=== PATIENT | female | born 1950 | race Two or more races ===

== ENCOUNTER 2017-09-24 12:33 | Inpatient (IN) | payer MEDICARE, OTHER ==
[~2017-09-24] VITALS: Ht 157.5 cm; Wt 70.2 kg
[~2017-09-24 12:33] MED LIST: AML5T PO; ATEN-60 PO; HYDR25TA4 PO; LEVO137T3 PO; POTA20TA53 PO; SIMV-8 PO
[2017-09-24] MEDS ORDERED: PROMETHAZINE HCL 25 MG/ML 1ML ONE (13:12)
[2017-09-24 13:39] LABS: Basophils # (auto) 0.1 uL; Basophils % (auto) 0.8 % (0.0-2.0); Eosinophils # (auto) 0.1 uL; Eosinophils % (auto) 1.6 % (0.0-7.0); Hemoglobin 12.5 g/dL (12.2-16.2); Lymphocytes # (auto) 1.6 uL; Lymphocytes % (auto) 24.4 % (10.0-50.0); Mean Corpuscular Hemoglobin 30.1 pg (28.0-32.0); Mean Corpuscular Hgb Conc. 33.8 g/dL (32.0-36.0); Mean Platelet Volume 8.7 fL (6.9-10.8); Monocytes # (auto) 0.4 uL; Monocytes % (auto) 5.5 % (0.0-12.0); Neutrophils # (auto) 4.6 uL; Neutrophils % (auto) 67.7 % (37.0-80.0); Nucleated Red Blood Cells % 0.1 %; Platelet Count (auto) 194 10^3/uL (140-450); Red Cell Distribution Width 14.2 % (11.8-14.3); White Blood Cell 6.7 10^3/uL (4.4-10.8)
[2017-09-24] MEDS ORDERED: PROMETHAZINE HCL 25 MG/ML 1ML IV ONE (13:45)
[2017-09-24 14:05] LABS: Albumin 3.2 g/dL (3.4-5.0); Anion Gap 4 (5-15); Aspartate Aminotransferase 20 U/L (15-37); BUN/Creatinine Ratio 20.7; Blood Urea Nitrogen 18 mg/dL (7-18); Calcium 8.4 mg/dL (8.5-10.1); Carbon Dioxide 29 mmol/L (21-32); Chloride 107 mmol/L (98-107); GFR African American 84 mL/min; GFR Non-African American 69 mL/min; Glucose 114 mg/dL (74-106); Sodium 140 mmol/L (136-145)
[2017-09-24 14:12] LABS: Alkaline Phosphatase 93 U/L (45-117); Bilirubin, Total 0.3 mg/dL (0.2-1.0); Total Protein 7.7 g/dL (6.4-8.2)
[2017-09-24 15:54] LABS: Urine RBC None Seen /hpf (0 - 4)
[2017-09-24] MEDS ORDERED: SODIUM CHLORIDE 0.9% 1,000 ML IVB ONE (16:10)
[2017-09-24 16:12] LABS: Urine Bilirubin Negative (Negative); Urine Blood Negative /uL (Negative); Urine Color Yellow (Yellow); Urine Glucose Normal (Normal); Urine Hyaline Cast FEW /lpf (0 - 2); Urine Ketone Negative (Negative); Urine Nitrite Negative (Negative); Urine Urobilinogen Normal (Negative)
[2017-09-24 16:54] LABS: INR 0.98 (0.9-1.15); Prothrombin Time 10.7 sec (9.37-12.3)
[2017-09-24] MEDS ORDERED: POTASSIUM CHL 20 Meq TABLET PO ONE (19:00)
[2017-09-24 22:26] VITALS: BP 142/76
[2017-09-24] MEDS ORDERED: LEVO112T4 PO (22:38)
[2017-09-24] MEDS ORDERED: ONDANSETRON HCL 4 MG/2 ML VIAL IV PRN (23:00)
[2017-09-25 05:00] VITALS: BP 123/69
[2017-09-25] MEDS: LEVOTHYROXINE SODIUM 50 MCG TAB PO SCH (06:19)
[2017-09-25 06:28] LABS: Basophils # (auto) 0 uL; Basophils % (auto) 0.8 % (0.0-2.0); Eosinophils # (auto) 0.1 uL; Eosinophils % (auto) 2.5 % (0.0-7.0); Hematocrit 35.4 % (36.0-46.0); Hemoglobin 12.2 g/dL (12.2-16.2); Mean Corpuscular Hemoglobin 30.8 pg (28.0-32.0); Mean Corpuscular Hgb Conc. 34.5 g/dL (32.0-36.0); Mean Corpuscular Volume 89.1 fL (80.0-100.0); Mean Platelet Volume 8.4 fL (6.9-10.8); Monocytes # (auto) 0.5 uL; Monocytes % (auto) 8.4 % (0.0-12.0); Neutrophils # (auto) 3.3 uL; Neutrophils % (auto) 55.3 % (37.0-80.0); Nucleated Red Blood Cells % 0.2 %; Platelet Count (auto) 185 10^3/uL (140-450); Red Cell Distribution Width 14.3 % (11.8-14.3)
[2017-09-25 07:06] LABS: BUN/Creatinine Ratio 19.7; Calcium 8.2 mg/dL (8.5-10.1); Potassium 3.3 mmol/L (3.5-5.1)
[2017-09-25 08:36] VITALS: BP 153/58
[2017-09-25] MEDS: hydrALAZINE HCL 25 MG TAB PO SCH (08:48)
[2017-09-25] MEDS ORDERED: POTASSIUM CHL 10 Meq TABLET PO ONE (12:00)
[2017-09-25 13:10] VITALS: BP 148/80
[2017-09-25] MEDS: BOOST PLUS 8 ounce PO SCH (17:19)
[2017-09-25 17:53] VITALS: BP 142/81
[2017-09-25 22:00] VITALS: BP 160/88
[2017-09-25] MEDS ORDERED: cloNIDine HCL 0.1 MG TAB PO PRN (22:45)
[2017-09-26 04:58] VITALS: BP 146/66
[2017-09-26] MEDS: LEVOTHYROXINE SODIUM 50 MCG TAB PO SCH (06:20)
[2017-09-26 07:10] LABS: Basophils # (auto) 0 uL; Basophils % (auto) 0.7 % (0.0-2.0); Eosinophils # (auto) 0.2 uL; Eosinophils % (auto) 3.5 % (0.0-7.0); Hemoglobin 12.2 g/dL (12.2-16.2); Lymphocytes % (auto) 30.9 % (10.0-50.0); Mean Corpuscular Hemoglobin 30.5 pg (28.0-32.0); Mean Corpuscular Volume 89.8 fL (80.0-100.0); Mean Platelet Volume 8.8 fL (6.9-10.8); Monocytes # (auto) 0.5 uL; Neutrophils # (auto) 3.7 uL; Neutrophils % (auto) 56.9 % (37.0-80.0); Nucleated Red Blood Cells % 0.1 %; Platelet Count (auto) 185 10^3/uL (140-450); Red Cell Distribution Width 13.9 % (11.8-14.3); White Blood Cell 6.4 10^3/uL (4.4-10.8)
[2017-09-26 07:40] LABS: Potassium 3.3 mmol/L (3.5-5.1)
[2017-09-26 07:43] LABS: Albumin 2.9 g/dL (3.4-5.0); BUN/Creatinine Ratio 20.6; Calcium 8.5 mg/dL (8.5-10.1)
[2017-09-26] MEDS: BOOST PLUS 8 ounce PO SCH ×3 (08:00→18:00)
[2017-09-26 08:13] LABS: Bilirubin, Total 0.4 mg/dL (0.2-1.0); Total Protein 6.9 g/dL (6.4-8.2)
[2017-09-26 09:00] VITALS: BP 141/85
[2017-09-26] MEDS: hydrALAZINE HCL 25 MG TAB PO SCH (09:00)
[2017-09-26] MEDS ORDERED: POTASSIUM CHL 20 Meq TABLET PO ONE (10:00)
[2017-09-26] MEDS ORDERED: amLODIPine BESYLATE 5 MG TAB PO ONE (10:15)
[2017-09-26 13:00] VITALS: BP 146/89
[2017-09-26 17:00] VITALS: BP 154/89
[2017-09-26 21:49] VITALS: BP 147/76
[2017-09-27 02:06] LABS: Thyroxine (T4) 7.7 ug/dL (4.5-12.0)
[2017-09-27 05:00] VITALS: BP 118/72
[2017-09-27] MEDS: LEVOTHYROXINE SODIUM 50 MCG TAB PO SCH (06:02)
[2017-09-27 06:04] LABS: Basophils # (auto) 0 uL; Basophils % (auto) 0.7 % (0.0-2.0); Eosinophils # (auto) 0.2 uL; Eosinophils % (auto) 3.7 % (0.0-7.0); Hematocrit 37.7 % (36.0-46.0); Hemoglobin 12.9 g/dL (12.2-16.2); Lymphocytes # (auto) 2.1 uL; Lymphocytes % (auto) 33.4 % (10.0-50.0); Mean Corpuscular Hemoglobin 30.8 pg (28.0-32.0); Mean Corpuscular Hgb Conc. 34.3 g/dL (32.0-36.0); Mean Corpuscular Volume 89.8 fL (80.0-100.0); Mean Platelet Volume 8.5 fL (6.9-10.8); Monocytes # (auto) 0.6 uL; Monocytes % (auto) 9.8 % (0.0-12.0); Neutrophils # (auto) 3.3 uL; Neutrophils % (auto) 52.4 % (37.0-80.0); Platelet Count (auto) 197 10^3/uL (140-450); White Blood Cell 6.3 10^3/uL (4.4-10.8)
[2017-09-27 06:23] LABS: BUN/Creatinine Ratio 19.4; Calcium 8.7 mg/dL (8.5-10.1); Potassium 3.5 mmol/L (3.5-5.1)
[2017-09-27 06:30] LABS: Bilirubin, Total 0.4 mg/dL (0.2-1.0); Total Protein 7.3 g/dL (6.4-8.2)
[2017-09-27] MEDS: BOOST PLUS 8 ounce PO SCH ×3 (08:00→18:00)
[2017-09-27 09:00] VITALS: BP 140/77
[2017-09-27] MEDS: hydrALAZINE HCL 25 MG TAB PO SCH (10:50)
[2017-09-27] MEDS: amLODIPine BESYLATE 5 MG TAB PO SCH (10:51)
[2017-09-27 13:00] VITALS: BP 150/85
[2017-09-27 17:00] VITALS: BP_SYST 151; BP_SYST 153; BP_DIAS 87; BP_DIAS 94
[2017-09-27 22:08] VITALS: BP 119/78
[2017-09-28 05:17] VITALS: BP 137/73
[2017-09-28] MEDS: LEVOTHYROXINE SODIUM 50 MCG TAB PO SCH (05:48)
[2017-09-28 08:00] VITALS: BP 131/77
[2017-09-28 09:03] VITALS: BP 131/77
[2017-09-28] MEDS: amLODIPine BESYLATE 5 MG TAB PO SCH (10:00)
[2017-09-28] MEDS: BOOST PLUS 8 ounce PO SCH ×3 (10:01→17:46)
[2017-09-28] MEDS: hydrALAZINE HCL 25 MG TAB PO SCH (10:01)
[2017-09-28 12:02] VITALS: BP 143/80
[2017-09-28 12:24] LABS: Basophils # (auto) 0 uL; Basophils % (auto) 0.7 % (0.0-2.0); Eosinophils # (auto) 0.2 uL; Eosinophils % (auto) 2.6 % (0.0-7.0); Hematocrit 38.8 % (36.0-46.0); Lymphocytes # (auto) 1.9 uL; Lymphocytes % (auto) 30.4 % (10.0-50.0); Mean Corpuscular Hgb Conc. 33.5 g/dL (32.0-36.0); Mean Corpuscular Volume 89.6 fL (80.0-100.0); Mean Platelet Volume 8.2 fL (6.9-10.8); Monocytes # (auto) 0.5 uL; Monocytes % (auto) 8.4 % (0.0-12.0); Neutrophils # (auto) 3.6 uL; Neutrophils % (auto) 57.9 % (37.0-80.0); Platelet Count (auto) 224 10^3/uL (140-450); Red Cell Distribution Width 14.1 % (11.8-14.3); White Blood Cell 6.2 10^3/uL (4.4-10.8)
[2017-09-28 12:51] LABS: Albumin 3.2 g/dL (3.4-5.0); BUN/Creatinine Ratio 21.1; Bilirubin, Total 0.3 mg/dL (0.2-1.0); Calcium 8.2 mg/dL (8.5-10.1); Potassium 3.5 mmol/L (3.5-5.1); Total Protein 7.5 g/dL (6.4-8.2)
[2017-09-28 17:00] VITALS: BP 154/90
[2017-09-28 22:25] VITALS: BP 138/91
[2017-09-29 05:20] VITALS: BP 131/79
[2017-09-29] MEDS: LEVOTHYROXINE SODIUM 50 MCG TAB PO SCH (05:52)
[2017-09-29 08:00] VITALS: BP 135/75
[2017-09-29 09:00] VITALS: BP 135/75
[2017-09-29] MEDS: hydrALAZINE HCL 25 MG TAB PO SCH (10:33)
[2017-09-29] MEDS: BOOST PLUS 8 ounce PO SCH ×3 (10:33→18:00)
[2017-09-29] MEDS: amLODIPine BESYLATE 5 MG TAB PO SCH (10:33)
[2017-09-29 13:00] VITALS: BP 137/77
[2017-09-29 17:00] VITALS: BP 139/90
[2017-09-29 17:58] VITALS: BP 135/75
== END 2017-09-29 18:45 | disposition home or self-care (01) | DRG 607 ==
LOC: EDBD 12:33 → ER 12:33 → TELE 12:34 → TELE-EAST 22:03
PROVIDERS: ADMIT Nurse Practitioner Family; ATTEND Internal Medicine
DX: L98.8 Other specified disorders of the skin and subcutaneous tissue (principal); E44.0 Moderate protein-calorie malnutrition; I67.2 Cerebral atherosclerosis; R55 Syncope and collapse; E87.6 Hypokalemia; E03.9 Hypothyroidism, unspecified; E78.5 Hyperlipidemia, unspecified; I12.9 Hypertensive chronic kidney disease with stage 1 through stage 4 chronic kidney disease, or unspecified chronic kidney disease; N18.2 Chronic kidney disease, stage 2 (mild); Z82.49 Family history of ischemic heart disease and other diseases of the circulatory system; Z68.28 Body mass index [BMI] 28.0-28.9, adult
CPT/HCPCS: 36415; 70450; 70551; 71010; 80048; 80053; 81001; 82962; 83735; 84443; 84484; 85025; 85610; 85730; 93005

== ENCOUNTER 2018-12-14 17:37 | Emergency (ER) | payer MEDICARE, OTHER ==
[~2018-12-14] VITALS: Ht 162.6 cm; Wt 77.1 kg
[2018-12-14 18:38] LABS: Alanine Aminotransferase 23 U/L (13-56); Albumin 3.4 g/dL (3.4-5.0); Anion Gap 14 (5-15); Aspartate Aminotransferase 23 U/L (15-37); BUN/Creatinine Ratio 16.1; Blood Urea Nitrogen 14 mg/dL (7-18); Calcium 8.1 mg/dL (8.5-10.1); Carbon Dioxide 21 mmol/L (21-32); Chloride 101 mmol/L (98-107); GFR African American 83 mL/min; GFR Non-African American 69 mL/min; Glucose 96 mg/dL (74-106); Magnesium 2.1 mg/dL (1.6-2.6); Potassium 3.4 mmol/L (3.5-5.1); Sodium 136 mmol/L (136-145)
[2018-12-14 18:40] LABS: Alkaline Phosphatase 96 U/L (45-117); Bilirubin, Total 0.5 mg/dL (0.2-1.0)
[2018-12-14 19:04] LABS: Basophils # (auto) 0 uL; Basophils % (auto) 0.6 % (0.0-2.0); Eosinophils # (auto) 0.1 uL; Eosinophils % (auto) 1.2 % (0.0-7.0); Hematocrit 41.3 % (36.0-46.0); Lymphocytes # (auto) 1.4 uL; Lymphocytes % (auto) 19.1 % (10.0-50.0); Monocytes # (auto) 0.5 uL; Monocytes % (auto) 7.1 % (0.0-12.0); Neutrophils # (auto) 5.2 uL; Platelet Count (auto) 232 10^3/uL (140-450); Red Blood Cells 4.53 10^6/uL (4.0-5.20); Red Cell Distribution Width 13.7 % (11.8-14.3); White Blood Cell 7.2 10^3/uL (4.4-10.8)
[2018-12-14] MEDS ORDERED: POTASSIUM CHL 20 Meq TABLET PO ONE (23:30)
[2018-12-15] MEDS ORDERED: IOHEXOL 350 MG/ML 100ML IJ ONE (01:38)
[2018-12-15 03:20] VITALS: BP 134/79
== END 2018-12-15 05:10 | disposition home or self-care (01) ==
LOC: EDBD 17:37 → ER 17:40
DX: E87.6 Hypokalemia (principal); J43.9 Emphysema, unspecified; I10 Essential (primary) hypertension; E78.5 Hyperlipidemia, unspecified; Z90.89 Acquired absence of other organs
CPT/HCPCS: 36415; 71045; 71275; 80053; 83735; 83880; 84484; 85025; 85379; 93005; 99284; Q9967

== ENCOUNTER 2022-03-08 11:34 | Emergency (ER) | payer OTHER ==
[~2022-03-08] VITALS: Ht 152.4 cm; Wt 69.4 kg
[~2022-03-08 11:34] MED LIST changes: +POTA-220 PO; -POTA20TA53 PO
[2022-03-08 12:12] LABS: Basophils # (auto) 0.1 10 ^3/uL (0-0.2); Basophils % (auto) 0.8 % (0.0-2.0); Eosinophils # (auto) 0.1 10 ^3/uL (0-0.8); Eosinophils % (auto) 2.1 % (0.0-7.0); Hematocrit 40.4 % (36.0-46.0); Hemoglobin 13.7 g/dL (12.2-16.2); Lymphocytes # (auto) 2.8 10 ^3/uL (0.4-5.4); Lymphocytes % (auto) 39.6 % (10.0-50.0); Mean Corpuscular Hemoglobin 30.5 pg (28.0-32.0); Mean Corpuscular Hgb Conc. 33.9 g/dL (32.0-36.0); Monocytes # (auto) 0.5 10 ^3/uL (0-1.3); Monocytes % (auto) 7.3 % (0.0-12.0); Neutrophils # (auto) 3.5 10 ^3/uL (1.6-8.6); Neutrophils % (auto) 50.2 % (37.0-80.0); Nucleated Red Blood Cells % 0.3 %; Red Blood Cells 4.49 10^6/uL (4.0-5.20)
[2022-03-08 12:33] LABS: Albumin 3.2 g/dL (3.4-5.0); Calcium 8.9 mg/dL (8.5-10.1); Potassium 3.6 mmol/L (3.5-5.1)
[2022-03-08 12:37] LABS: BUN/Creatinine Ratio 16.8; Bilirubin, Total 0.5 mg/dL (0.2-1.0); Total Protein 7.7 g/dL (6.4-8.2)
[2022-03-08 16:10] VITALS: BP 116/74
== END 2022-03-08 16:43 | disposition home or self-care (01) ==
LOC: ER 11:34
DX: R55 Syncope and collapse (principal); I10 Essential (primary) hypertension; E78.5 Hyperlipidemia, unspecified; Z90.89 Acquired absence of other organs; Z79.899 Other long term (current) drug therapy
CPT/HCPCS: 36415; 70450; 80053; 83880; 84484; 85025; 93005; 99285; J7030

== ENCOUNTER 2023-11-21 14:34 | Inpatient (IN) | payer OTHER ==
[2023-11-21] VITALS (11 sets, daily range): BP systolic 94–125; BP diastolic 66–90; PULSE 63–95; RESP 14–23; TEMP 98; O2SAT 90–98
[~2023-11-21] VITALS: Ht 152.4 cm; Wt 73.9 kg
[~2023-11-21 14:34] MED LIST changes: -SIMV-8 PO; +SIMV20TA20 PO
[2023-11-21] MEDS ORDERED: HEPARIN DRIP/D5W 100UNITS/ML 250 ML IV SCH (14:45)
[2023-11-21] MEDS ORDERED: HEPARIN SODIUM (PORCINE) 5000 UNITS/ML 1ML VIAL IV ONE (14:45)
[2023-11-21] MEDS ORDERED: fentaNYL CITRATE 100 MCG/2 ML VL ONE (14:51)
[2023-11-21] MEDS ORDERED: MIDAZOLAM HCL 2MG/2ML 2ml VIAL (1mg/ml) ONE (14:51)
[2023-11-21] MEDS ORDERED: SODIUM CHL 0.9% 50 ML ONE (14:51)
[2023-11-21] MEDS ORDERED: ANGIOMAX 250 MG VIAL IV ONE (14:51)
[2023-11-21] MEDS ORDERED: IODIXANOL 320MG/ML 100ML BTL IV ONE ×2 (14:53→15:35)
[2023-11-21] MEDS ORDERED: LIDOCAINE 2%HCL (LOCAL ANESTH.) INJ 20ML MDV ONE (14:53)
[2023-11-21 15:05] LABS: Basophils # (auto) 0.1 10 ^3/uL (0-0.2); Basophils % (auto) 0.4 % (0.0-2.0); Eosinophils # (auto) 0.2 10 ^3/uL (0-0.8); Eosinophils % (auto) 1.7 % (0.0-7.0); Hematocrit 42.1 % (36.0-46.0); Hemoglobin 13.9 g/dL (12.2-16.2); Lymphocytes # (auto) 4.9 10 ^3/uL (0.4-5.4); Lymphocytes % (auto) 35.4 % (10.0-50.0); Monocytes # (auto) 1.2 10 ^3/uL (0-1.3); Monocytes % (auto) 8.4 % (0.0-12.0); Neutrophils # (auto) 7.5 10 ^3/uL (1.6-8.6); Neutrophils % (auto) 54.1 % (37.0-80.0); Nucleated Red Blood Cells % 0.1 %; Red Blood Cells 4.63 10^6/uL (4.0-5.20); Red Cell Distribution Width 13.7 % (11.8-14.3); White Blood Cell 13.9 10^3/uL (4.4-10.8)
[2023-11-21] MEDS ORDERED: ONDANSETRON HCL 4 MG/2 ML VIAL IV PRN ×2 (15:15→17:15)
[2023-11-21] MEDS ORDERED: ACETAMINOPHEN 325 MG TAB PO PRN (15:15)
[2023-11-21] MEDS ORDERED: NITROGLYCERIN 0.4 MG SL TAB SL PRN ×3 (15:15→17:15)
[2023-11-21] MEDS ORDERED: MORPHINE SULFATE 4 MG/ML SYR/VIAL IV PRN ×2 (15:15→17:15)
[2023-11-21 15:20] LABS: Alanine Aminotransferase 27 U/L (7-40); Albumin 3.8 g/dL (3.2-4.8); Alkaline Phosphatase 108 U/L (46-116); Anion Gap 8 (5-15); Aspartate Aminotransferase 22 U/L (13-40); BUN/Creatinine Ratio 13.3 (10.0-20.0); Blood Urea Nitrogen 10 mg/dL (9-23); Calcium 8.6 mg/dL (8.5-10.1); Carbon Dioxide 26 mmol/L (20-30); Chloride 105 mmol/L (98-107); Cholesterol 176 mg/dL (< 200); Glucose 126 mg/dL (74-106); HDL Cholesterol 36 mg/dL (40-59); LDL Cholesterol 116 mg/dL (< 100); Potassium 3.1 mmol/L (3.5-5.1); Sodium 139 mmol/L (136-145); Triglycerides 274 mg/dL (< 150)
[2023-11-21 15:21] LABS: Bilirubin, Total 0.3 mg/dL (0.2-1.0); Total Protein 6.7 g/dL (5.7-8.2)
[2023-11-21] MEDS ORDERED: niCARdipine 25 MG/10 ML VIAL IV ONE (15:24)
[2023-11-21] MEDS ORDERED: EPTIFIBATIDE INJ (2MG/ML) 10ML VIAL IV ONE (15:30)
[2023-11-21] MEDS ORDERED: ATROPINE SULF 1 MG/10ml SYR ONE (15:30)
[2023-11-21 15:40] LABS: Magnesium 1.8 mg/dL (1.6-2.6)
[2023-11-21] MEDS ORDERED: ONDANSETRON HCL 4 MG/2 ML VIAL ONE (15:53)
[2023-11-21] MEDS ORDERED: EPTIFIBATIDE DRIP(0.75MG/ML) 100 ML IV ONE (16:02)
[2023-11-21] MEDS ORDERED: CLOPIDOGREL 300 MG TAB ONE ×2 (16:06→17:51)
[2023-11-21 16:24] LABS: INR 1.09 (0.9-1.15); Prothrombin Time 11.4 sec (9.3-11.8)
[2023-11-21 16:49] LABS: INR 1.09 (0.9-1.15); Partial Thromboplastin Time 23.1 SEC (24.5-34.5); Prothrombin Time 11.4 sec (9.3-11.8)
[2023-11-21] MEDS: EPTIFIBATIDE DRIP(0.75MG/ML) 100 ML IV SCH (17:15)
[2023-11-21] MEDS ORDERED: ACETAMINOPHEN 500 MG TAB PO PRN (17:15)
[2023-11-21] MEDS ORDERED: MILK OF MAGNESIA 30ML SUSP PO ONE (17:15)
[2023-11-21] MEDS ORDERED: MORPHINE SULFATE INJ 2 MG/ml SYRG IV PRN (17:15)
[2023-11-21] MEDS ORDERED: HYDROcodone-ACET 5/325MG TAB PO PRN (17:15)
[2023-11-21] MEDS ORDERED: LORazepam 0.5 MG TAB PO PRN (17:15)
[2023-11-21] MEDS ORDERED: ZOLPIDEM TARTRATE 5 MG TAB PO PRN (17:15)
[2023-11-21] MEDS ORDERED: ATORVASTATIN 20 MG TAB PO ONE (17:30)
[2023-11-21] MEDS ORDERED: CLOPIDOGREL BISULFATE 75 MG TAB PO ONE ×2 (17:30→17:45)
[2023-11-21 18:07] LABS: Basophils # (auto) 0 10 ^3/uL (0-0.2); Basophils % (auto) 0.3 % (0.0-2.0); Eosinophils # (auto) 0.1 10 ^3/uL (0-0.8); Eosinophils % (auto) 0.5 % (0.0-7.0); Hematocrit 42.6 % (36.0-46.0); Lymphocytes # (auto) 1.8 10 ^3/uL (0.4-5.4); Lymphocytes % (auto) 13.7 % (10.0-50.0); Mean Corpuscular Hemoglobin 30.1 pg (28.0-32.0); Mean Corpuscular Hgb Conc. 32.9 g/dL (32.0-36.0); Mean Corpuscular Volume 91.3 fL (80.0-100.0); Monocytes # (auto) 0.8 10 ^3/uL (0-1.3); Monocytes % (auto) 6.3 % (0.0-12.0); Neutrophils # (auto) 10.6 10 ^3/uL (1.6-8.6); Neutrophils % (auto) 79.2 % (37.0-80.0); Nucleated Red Blood Cells % 0.1 %; Red Blood Cells 4.67 10^6/uL (4.0-5.20); Red Cell Distribution Width 13.5 % (11.8-14.3); White Blood Cell 13.4 10^3/uL (4.4-10.8)
[2023-11-21] MEDS: SODIUM CHLORIDE 0.9% 1,000 ML IV SCH (18:47)
[2023-11-21] MEDS ORDERED: LEVO-177 PO (20:59)
[2023-11-21] MEDS ORDERED: SIMV10TA20 PO (21:01)
[2023-11-21] MEDS: SODIUM CHLOR 0.9% PF (SALINE LOCK) 10ML VIAL/SYR IV SCH (21:52)
[2023-11-21] MEDS ORDERED: ATORVASTATIN 20 MG TAB PO SCH (22:00)
[2023-11-22] VITALS (7 sets, daily range): BP systolic 112–124; BP diastolic 71–81; PULSE 59–93; RESP 16–20; TEMP 98.1–98.5; O2SAT 96–97
[2023-11-22] MEDS: EPTIFIBATIDE DRIP(0.75MG/ML) 100 ML IV SCH ×2 (00:53→10:27)
[2023-11-22] MEDS: SODIUM CHLORIDE 0.9% 1,000 ML IV SCH ×3 (03:57→23:30)
[2023-11-22] MEDS: SODIUM CHLOR 0.9% PF (SALINE LOCK) 10ML VIAL/SYR IV SCH ×3 (05:22→21:46)
[2023-11-22 06:30] LABS: Basophils # (auto) 0 10 ^3/uL (0-0.2); Basophils % (auto) 0.2 % (0.0-2.0); Eosinophils # (auto) 0.1 10 ^3/uL (0-0.8); Eosinophils % (auto) 0.9 % (0.0-7.0); Hematocrit 39.1 % (36.0-46.0); Hemoglobin 13.1 g/dL (12.2-16.2); Lymphocytes # (auto) 2.3 10 ^3/uL (0.4-5.4); Lymphocytes % (auto) 17.3 % (10.0-50.0); Mean Corpuscular Hemoglobin 30.1 pg (28.0-32.0); Mean Corpuscular Hgb Conc. 33.4 g/dL (32.0-36.0); Monocytes # (auto) 0.9 10 ^3/uL (0-1.3); Monocytes % (auto) 6.6 % (0.0-12.0); Neutrophils # (auto) 10.2 10 ^3/uL (1.6-8.6); Red Blood Cells 4.35 10^6/uL (4.0-5.20); Red Cell Distribution Width 13.6 % (11.8-14.3); White Blood Cell 13.5 10^3/uL (4.4-10.8)
[2023-11-22 07:01] LABS: Alanine Aminotransferase 34 U/L (7-40); Albumin 3.4 g/dL (3.2-4.8); Alkaline Phosphatase 100 U/L (46-116); Anion Gap 8 (5-15); Aspartate Aminotransferase 122 U/L (13-40); BUN/Creatinine Ratio 12.5 (10.0-20.0); Blood Urea Nitrogen 7 mg/dL (9-23); Calcium 7.9 mg/dL (8.7-10.4); Carbon Dioxide 23 mmol/L (20-30); Chloride 106 mmol/L (98-107); Glucose 94 mg/dL (74-106); Magnesium 1.6 mg/dL (1.6-2.6); Potassium 3.3 mmol/L (3.5-5.1); Sodium 137 mmol/L (136-145)
[2023-11-22 07:02] LABS: Bilirubin, Total 0.7 mg/dL (0.2-1.0); Total Protein 6.3 g/dL (5.7-8.2)
[2023-11-22 07:18] LABS: Cholesterol 152 mg/dL (< 200); HDL Cholesterol 32 mg/dL (40-59); LDL Cholesterol 96 mg/dL (< 100); Triglycerides 188 mg/dL (< 150)
[2023-11-22] MEDS: DOCUSATE SOD 100 MG CAP PO SCH (09:32)
[2023-11-22] MEDS: ASPirin-EC 81 mg tab PO SCH (09:32)
[2023-11-22] MEDS ORDERED: METOPROLOL TARTRATE 25 MG TAB PO ONE (10:00)
[2023-11-22] MEDS ORDERED: POTA10TA51 PO (13:18)
[2023-11-22] MEDS ORDERED: ASPirin 81 mg TAB PO ONE (16:15)
[2023-11-22] MEDS ORDERED: CLOPIDOGREL BISULFATE 75 MG TAB PO ONE (16:15)
[2023-11-22] MEDS ORDERED: POTASSIUM CHL 20 Meq TABLET PO ONE (19:00)
[2023-11-22] MEDS ORDERED: METOPROLOL TARTRATE 1MG/1ML-5ML VIAL IV PRN (19:00)
[2023-11-22] MEDS: ATORVASTATIN 20 MG TAB PO SCH (21:46)
[2023-11-23] VITALS (7 sets, daily range): BP systolic 105–132; BP diastolic 68–73; PULSE 74–107; RESP 18–19; TEMP 98.1–98.5; O2SAT 97–98
[2023-11-23] MEDS: SODIUM CHLOR 0.9% PF (SALINE LOCK) 10ML VIAL/SYR IV SCH ×3 (05:29→21:38)
[2023-11-23] MEDS: CLOPIDOGREL BISULFATE 75 MG TAB PO SCH (09:28)
[2023-11-23] MEDS: ASPirin-EC 81 mg tab PO SCH (09:28)
[2023-11-23] MEDS: DOCUSATE SOD 100 MG CAP PO SCH (09:28)
[2023-11-23] MEDS: SODIUM CHLORIDE 0.9% 1,000 ML IV SCH ×2 (09:30→19:30)
[2023-11-23] MEDS ORDERED: AMIODARONE HCL 200 MG TAB PO ONE (13:45)
[2023-11-23] MEDS: METOPROLOL TARTRATE 25 MG TAB PO SCH (21:38)
[2023-11-23] MEDS: ATORVASTATIN 20 MG TAB PO SCH (21:38)
[2023-11-24 05:23] VITALS: BP 117/81; PULSE 76; RESP 18; TEMP 98.1; O2SAT 98
[2023-11-24] MEDS: SODIUM CHLORIDE 0.9% 1,000 ML IV SCH (05:30)
[2023-11-24] MEDS: SODIUM CHLOR 0.9% PF (SALINE LOCK) 10ML VIAL/SYR IV SCH ×2 (06:07→14:00)
[2023-11-24 08:00] VITALS: BP 119/72; PULSE 91; PULSE 93; RESP 16; TEMP 97.8; O2SAT 97
[2023-11-24 09:03] VITALS: BP 119/72; PULSE 91; RESP 16; TEMP 97.8; O2SAT 97
[2023-11-24 09:05] LABS: Hepatitis B Surface Antigen Negative (Negative)
[2023-11-24 09:25] LABS: Hepatitis A Ab IgM Negative
[2023-11-24 09:26] LABS: Hepatitis B Core IgM Negative
[2023-11-24 09:27] LABS: Hepatitis C Antibody Negative (Negative)
[2023-11-24] MEDS: ASPirin-EC 81 mg tab PO SCH (10:13)
[2023-11-24] MEDS: DOCUSATE SOD 100 MG CAP PO SCH (10:13)
[2023-11-24] MEDS: CLOPIDOGREL BISULFATE 75 MG TAB PO SCH (10:13)
[2023-11-24] MEDS: METOPROLOL TARTRATE 25 MG TAB PO SCH (10:14)
[2023-11-24] MEDS ORDERED: ASPI-543 PO (10:39)
[2023-11-24] MEDS ORDERED: MET25T PO (10:39)
[2023-11-24] MEDS ORDERED: ATOR20TA50 PO (10:39)
[2023-11-24] MEDS ORDERED: CLOP75TA70 PO (10:39)
[2023-11-24 12:12] VITALS: BP 119/72; PULSE 91; RESP 16; TEMP 97.8; O2SAT 97
[2023-11-24 13:09] VITALS: BP 110/72; PULSE 79; RESP 18; TEMP 97.9; O2SAT 93
[2023-11-29] MEDS ORDERED: ATEN-60 PO (18:10)
[2023-11-29] MEDS ORDERED: CLOP75TA70 PO (18:10)
[2023-11-29] MEDS ORDERED: ASPI-543 PO (18:10)
[2023-11-29] MEDS ORDERED: POTA10TA51 PO (18:10)
[2023-11-29] MEDS ORDERED: AML5T PO (18:10)
[2023-11-29] MEDS ORDERED: LEVO-177 PO (18:10)
[2023-11-29] MEDS ORDERED: MET25T PO (18:10)
[2023-11-29] MEDS ORDERED: ATOR20TA50 PO ×2 (18:10)
[2023-11-29] MEDS ORDERED: SIMV10TA20 PO (18:10)
[2023-12-02] MEDS ORDERED: AMIO200T33 PO (10:59)
== END 2023-11-24 14:35 | disposition home or self-care (01) | DRG 321 ==
LOC: EDBD 14:34 → EDUNIT# 14:34 → ER 14:34 → TELE 15:12 → TELE-EAST 18:42
PROVIDERS: ADMIT Specialist; ATTEND Internal Medicine Pulmonary Disease
PROC: 5A2204Z Restoration of Cardiac Rhythm, Single (ICD-10-PCS; principal; 2023-11-21)
PROC: 027035Z Dilation of Coronary Artery, One Artery with Two Drug-eluting Intraluminal Devices, Percutaneous Approach (ICD-10-PCS; 2023-11-21)
PROC: 02C03ZZ Extirpation of Matter from Coronary Artery, One Artery, Percutaneous Approach (ICD-10-PCS; 2023-11-21)
PROC: 4A023N7 Measurement of Cardiac Sampling and Pressure, Left Heart, Percutaneous Approach (ICD-10-PCS; 2023-11-21)
PROC: B41FYZZ Fluoroscopy of Right Lower Extremity Arteries using Other Contrast (ICD-10-PCS; 2023-11-21)
PROC: 3E073PZ Introduction of Platelet Inhibitor into Coronary Artery, Percutaneous Approach (ICD-10-PCS; 2023-11-21)
PROC: B210YZZ Fluoroscopy of Single Coronary Artery using Other Contrast (ICD-10-PCS; 2023-11-21)
PROC: B215YZZ Fluoroscopy of Left Heart using Other Contrast (ICD-10-PCS; 2023-11-21)
PROC: B211YZZ Fluoroscopy of Multiple Coronary Arteries using Other Contrast (ICD-10-PCS; 2023-11-21)
DX: I21.19 ST elevation (STEMI) myocardial infarction involving other coronary artery of inferior wall (principal); I49.01 Ventricular fibrillation; E87.5 Hyperkalemia; E78.5 Hyperlipidemia, unspecified; E03.9 Hypothyroidism, unspecified; I10 Essential (primary) hypertension; I25.10 Atherosclerotic heart disease of native coronary artery without angina pectoris; Z79.899 Other long term (current) drug therapy; Z85.850 Personal history of malignant neoplasm of thyroid; Z82.49 Family history of ischemic heart disease and other diseases of the circulatory system
CPT/HCPCS: 92929; 92941; 92960; 92973; 93458; 99285; J1327; 36415; 71045; 80053; 80061; 80074; 83036; 83735; 84443; 84484; 85025; 85610; 85730; 86850; 86900; 86901; 93005; 93306; 99152; C1887; G0378; J2250; J2405; Q9967

== ENCOUNTER 2023-12-10 13:41 | Inpatient (IN) | payer OTHER ==
[~2023-12-10] VITALS: Ht 152.4 cm; Wt 70.1 kg
[~2023-12-10 13:41] MED LIST changes: +AMIO200T33 PO; +ASPI-543 PO; +CLOP75TA70 PO; -HYDR25TA4 PO; +LEVO-177 PO; -LEVO137T3 PO; +MET25T PO; -POTA-220 PO; +POTA10TA51 PO; +SIMV10TA20 PO; -SIMV20TA20 PO
[2023-12-10 14:13] LABS: Basophils # (auto) 0 10 ^3/uL (0-0.2); Basophils % (auto) 0.8 % (0.0-2.0); Eosinophils # (auto) 0.1 10 ^3/uL (0-0.8); Eosinophils % (auto) 2.1 % (0.0-7.0); Hematocrit 40.8 % (36.0-46.0); Hemoglobin 13.7 g/dL (12.2-16.2); Lymphocytes # (auto) 1.3 10 ^3/uL (0.4-5.4); Lymphocytes % (auto) 27.2 % (10.0-50.0); Mean Corpuscular Hemoglobin 30.6 pg (28.0-32.0); Mean Corpuscular Hgb Conc. 33.7 g/dL (32.0-36.0); Mean Corpuscular Volume 90.9 fL (80.0-100.0); Monocytes # (auto) 0.3 10 ^3/uL (0-1.3); Monocytes % (auto) 6.7 % (0.0-12.0); Neutrophils % (auto) 63.2 % (37.0-80.0); Nucleated Red Blood Cells % 0.2 %; Red Blood Cells 4.49 10^6/uL (4.0-5.20); Red Cell Distribution Width 14.4 % (11.8-14.3); White Blood Cell 4.7 10^3/uL (4.4-10.8)
[2023-12-10 14:23] LABS: Chloride 107 mmol/L (98-107); Potassium 3.1 mmol/L (3.5-5.1); Sodium 138 mmol/L (136-145)
[2023-12-10 14:24] LABS: Anion Gap 9 (5-15); Calcium 8.8 mg/dL (8.7-10.4); Carbon Dioxide 22 mmol/L (20-30)
[2023-12-10 14:29] LABS: BUN/Creatinine Ratio 12.8 (10.0-20.0); Blood Urea Nitrogen 10 mg/dL (9-23); Glucose 140 mg/dL (74-106)
[2023-12-10 14:30] LABS: Magnesium 1.7 mg/dL (1.6-2.6)
[2023-12-10] MEDS: POTASSIUM CHL 20 Meq TABLET PO ONE (16:11)
[2023-12-10 19:35] VITALS: PULSE 14; RESP 14; O2SAT 96
[2023-12-10 20:21] LABS: Urine Bacteria NONE SEEN /hpf (None Seen); Urine Blood Negative /uL (Negative); Urine Clarity Clear (Clear); Urine Color Yellow (Yellow); Urine Protein, UAD Negative (Negative); Urine Specific Gravity 1.016 (1.001-1.035); Urine Urobilinogen Normal (Negative); Urine WBC 2 /hpf (0 - 5); Urine pH 6.5 (5.0-8.0)
[2023-12-10] MEDS ORDERED: MORPHINE SULFATE INJ 2 MG/ml SYRG IV PRN (21:00)
[2023-12-10] MEDS ORDERED: DOCUSATE SOD 100 MG CAP PO PRN (21:00)
[2023-12-10] MEDS ORDERED: HYDROcodone-ACET 5/325MG TAB PO PRN (21:00)
[2023-12-10] MEDS ORDERED: ONDANSETRON HCL 4 MG/2 ML VIAL IV PRN (21:00)
[2023-12-10] MEDS ORDERED: TEMAZEPAM 15 MG CAP PO PRN (21:00)
[2023-12-10] MEDS ORDERED: NITROGLYCERIN 0.4 MG SL TAB SL PRN ×2 (21:00)
[2023-12-10] MEDS: APIXABAN 5 MG TAB PO SCH (23:26)
[2023-12-10] MEDS: METOPROLOL TARTRATE 25 MG TAB PO SCH (23:27)
[2023-12-11 05:09] LABS: Basophils # (auto) 0 10 ^3/uL (0-0.2); Basophils % (auto) 0.8 % (0.0-2.0); Eosinophils # (auto) 0.3 10 ^3/uL (0-0.8); Eosinophils % (auto) 5.6 % (0.0-7.0); Hematocrit 37.8 % (36.0-46.0); Hemoglobin 12.7 g/dL (12.2-16.2); Lymphocytes # (auto) 1.5 10 ^3/uL (0.4-5.4); Lymphocytes % (auto) 31.9 % (10.0-50.0); Mean Corpuscular Hemoglobin 30.8 pg (28.0-32.0); Mean Corpuscular Hgb Conc. 33.7 g/dL (32.0-36.0); Mean Corpuscular Volume 91.5 fL (80.0-100.0); Monocytes # (auto) 0.5 10 ^3/uL (0-1.3); Monocytes % (auto) 10.5 % (0.0-12.0); Neutrophils # (auto) 2.4 10 ^3/uL (1.6-8.6); Neutrophils % (auto) 51.2 % (37.0-80.0); Nucleated Red Blood Cells % 0.2 %; Red Blood Cells 4.13 10^6/uL (4.0-5.20); Red Cell Distribution Width 14.1 % (11.8-14.3); White Blood Cell 4.6 10^3/uL (4.4-10.8)
[2023-12-11 05:19] LABS: Alanine Aminotransferase 15 U/L (7-40); Albumin 3.8 g/dL (3.2-4.8); Alkaline Phosphatase 100 U/L (46-116); Anion Gap 8 (5-15); Aspartate Aminotransferase 20 U/L (13-40); BUN/Creatinine Ratio 8.9 (10.0-20.0); Bilirubin, Total 0.6 mg/dL (0.2-1.0); Blood Urea Nitrogen 7 mg/dL (9-23); Calcium 8.5 mg/dL (8.7-10.4); Carbon Dioxide 24 mmol/L (20-30); Chloride 108 mmol/L (98-107); Glucose 92 mg/dL (74-106); Potassium 3.6 mmol/L (3.5-5.1); Sodium 140 mmol/L (136-145); Total Protein 6.5 g/dL (5.7-8.2)
[2023-12-11] MEDS: LEVOTHYROXINE SODIUM 88 MCG TAB PO SCH (06:42)
[2023-12-11 07:30] VITALS: PULSE 73; RESP 18; O2SAT 98
[2023-12-11] MEDS: amLODIPine BESYLATE 5 MG TAB PO SCH (10:00)
[2023-12-11] MEDS: PANTOPRAZOLE 40 MG TAB PO SCH (11:16)
[2023-12-11] MEDS: AMIODARONE HCL 200 MG TAB PO SCH (11:17)
[2023-12-11 17:58] VITALS: RESP 17
[2023-12-11 20:00] VITALS: PULSE 63
[2023-12-11] MEDS: PRAVASTATIN SODIUM 20 MG TAB PO SCH (21:13)
[2023-12-11 21:56] VITALS: BP 123/75; PULSE 70; RESP 16; TEMP 98; O2SAT 99
[2023-12-12] VITALS (7 sets, daily range): BP systolic 99–120; BP diastolic 60–69; PULSE 60–79; RESP 16–20; TEMP 97.6–98.4; O2SAT 97–99
[2023-12-12 05:34] LABS: Anion Gap 6 (5-15); Calcium 8.5 mg/dL (8.7-10.4); Carbon Dioxide 26 mmol/L (20-30); Chloride 108 mmol/L (98-107); Potassium 3.5 mmol/L (3.5-5.1); Sodium 140 mmol/L (136-145)
[2023-12-12 05:40] LABS: Blood Urea Nitrogen 12 mg/dL (9-23); Glucose 100 mg/dL (74-106); Magnesium 1.9 mg/dL (1.6-2.6)
[2023-12-12 05:42] LABS: Phosphorus 4.3 mg/dL (2.4-5.1)
[2023-12-13 05:00] VITALS: BP 102/67; PULSE 67; RESP 19; TEMP 98; O2SAT 98
[2023-12-13 07:30] VITALS: PULSE 67; O2SAT 98
[2023-12-13 09:00] VITALS: BP 131/70; PULSE 80; RESP 18; TEMP 98.7; O2SAT 98
[2023-12-13] MEDS ORDERED: ALPRAZolam 0.5 MG TAB PO PRN (11:00)
[2023-12-13] MEDS ORDERED: ALPR0.5T PO (11:04)
[2023-12-13] MEDS ORDERED: APIX5TAB PO (11:18)
[2023-12-13 11:39] VITALS: BP 108/63; PULSE 80; TEMP 37.1
== END 2023-12-13 12:50 | disposition home or self-care (01) | DRG 313 ==
LOC: EDBD 13:41 → ER 13:41 → TELE 20:51 → ER 20:51 → TELE-WESTW 12-11 09:30 → TELE 12-11 09:30 → TELE-CENTR 12-11 18:09
PROVIDERS: ADMIT Nurse Practitioner; ATTEND Nurse Practitioner
DX: R07.89 Other chest pain (principal); I10 Essential (primary) hypertension; I48.0 Paroxysmal atrial fibrillation; E89.0 Postprocedural hypothyroidism; E87.6 Hypokalemia; E78.5 Hyperlipidemia, unspecified; I25.2 Old myocardial infarction; Z95.5 Presence of coronary angioplasty implant and graft; Z85.850 Personal history of malignant neoplasm of thyroid; Z82.49 Family history of ischemic heart disease and other diseases of the circulatory system; Z86.74 Personal history of sudden cardiac arrest
CPT/HCPCS: 36415; 71045; 80048; 80053; 81001; 83735; 83880; 84100; 84443; 84484; 85025; 93306; 97163; G0378